=== PATIENT | female | born 1940 | race Caucasian/White ===

== ENCOUNTER 2024-05-30 11:42 | Inpatient (IN) | payer MEDICARE, OTHER, SELFPAY ==
[2024-05-30] VITALS (7 sets, daily range): BP systolic 114–149; BP diastolic 62–78; PULSE 81–92; BMI 32.7; BMI 29.2
[2024-05-30 04:14] LABS: % Basophils 0.6 % (0-2); % Eosinophils 1.7 % (0-6); % Immature Granulocytes 0.3 % (0-0.5); % Lymphocytes 16.4 % (20.5-51.1); % Monocytes 8.6 % (1.7-9.3); % Neutrophils 72.4 % (42.2-75.2); Absolute Eosinophils 0.1 10^3/uL (0-0.7); Absolute Lymphocytes 1.1 10^3/uL (1.2-3.4); Absolute Monocytes 0.6 10^3/uL (0.1-0.6); Absolute Neutrophils 4.7 10^3/uL (1.4-6.5); Hematocrit 30.2 % (37.0-47.0); Hemoglobin 10.2 g/dL (12.0-16.0); Mean Corp Hgb Conc. 33.8 g/dL (33.0-37.0); Mean Corpuscular Hgb 31.9 pg (27.0-31.0); Mean Corpuscular Volume 94.4 fL (81.0-99.0); Mean Platelet Volume 9.7 fL (7.4-10.4); Nucleated Red Blood Cells % 0 %; Platelet Count 275 10^3/uL (130-400); Red Cell Dist. Width 13.4 % (11.5-14.5); White Blood Cell Count 6.5 10^3/uL (4.8-10.8)
[2024-05-30 04:28] LABS: ALT (SGPT) 18 U/L (0-35); AST (SGOT) 22 U/L (14-36); Albumin 3.8 g/dl (3.5-5.0); Alkaline Phosphatase 92 U/L (38-126); Blood Urea Nitrogen 28 mg/dl (7-17); Calcium 8.6 mg/dl (8.4-10.2); Carbon Dioxide 24 mmol/L (22-30); Chloride 108 mmol/L (98-107); Glucose 147 mg/dl (70-99); Sodium 141 mmol/L (135-145); Total Bilirubin 0.6 mg/dl (0.2-1.3); eGFR > 60.00
--- NOTE | 2024-05-30 07:42 | ED.GENMED ---
History of Present Illness
General
Chief Complaint: Rectal Bleeding
Source: patient
Exam Limitations: none
Time Seen by Provider: 05/30/24 07:05
History of Present Illness
History of Present Illness:
84-year-old female on a baby aspirin presents with onset of copious amounts and several episodes of bright red blood per rectum about 5 to 6 hours prior to exam. She denies abdominal pain. Dorsalis denies chest pain or shortness of breath. She
does feel weak. Upon standing at home she was feeling slightly lightheaded. No urinary symptoms. No other complaints. She states she last had a colonoscopy about 2 years ago which per the patient showed no abnormalities.
Past History
Past History
ED Past Medical History: Other (Migraines)
ED Past Surgical History: Orthopedic
Social History
Tobacco: Non-smoker
Phy Exam
Physical Exam
Physical Exam:
General: Well-appearing female no acute respiratory distress
HEENT: Normocephalic atraumatic sclera anicteric
Heart: Regular rate and rhythm
Lungs: Clear no wheeze
Abdomen is soft nontender nondistended
Rectal exam with female weatherization administrator in room shows red-colored stool heme positive no hemorrhoids or fissures noted
Extremities: No cyanosis
Course
Orders/Labs/Results
Orders:
Orders
05/30/24 03:34
Type+Screen Urgent
05/30/24 04:03
CBC/With Diff [Complete Blood Count/With Diff] Urgent
Comprehensive Metabolic Panel Urgent
05/30/24 07:50
CT Angio Abd/Pelvis w/wo IV [CT Abd/pelvis Angio W/wo Iv] Urgent
Comment:
Reason For Exam: rectal bleeding
Abnormal Lab Results
05/30/24
04:03
RBC 3.20 L 10^6/uL
(4.20-5.40)
Hgb 10.2 L g/dL
(12.0-16.0)
Hct 30.2 L %
(37.0-47.0)
MCH 31.9 H pg
(27.0-31.0)
Absolute Lymphs (auto) 1.1 L 10^3/uL
(1.2-3.4)
Lymphocytes % 16.4 L %
(20.5-51.1)
Chloride 108 H mmol/L
(98-107)
BUN 28 H mg/dl
(7-17)
Glucose 147 H mg/dl
(70-99)
Total Protein 6.0 L g/dl
(6.3-8.2)
05/30/24 04:03
05/30/24 04:03
Vital Signs
Initial and Last Documented VS:
Initial Vital Signs
Temp Pulse Resp BP Pulse Ox
98 F 78 20 114/64 96
05/30/24 03:30 05/30/24 03:30 05/30/24 03:30 05/30/24 03:30 05/30/24 03:30
Last Documented Vital Signs
Temp Pulse Resp BP Pulse Ox
98 F 76 16 137/66 98
05/30/24 03:30 05/30/24 07:41 05/30/24 07:41 05/30/24 07:41 05/30/24 07:41
MDM/Problems Addressed
Differential Diagnosis Includes:
Bright red rectal bleeding. No obvious evidence of hemorrhoid or fissure. Consider diverticular bleed. Patient's vital signs are stable do not suspect brisk upper GI bleed. Hemoglobin today is 10.2. Most recent was from 2019 which showed
hemoglobin of 11. Will plan on admitting to hospital for GI bleeding. GI made aware.
*Critical Care Note
Total Time (30-74mins, 75-104mins- exclusive of procedures): Not Applicable
ED Attending Note
-
Portions of this chart may have been created with voice recognition software.� Occasional wrong word or��sound alike� substitutions may have occurred due to the inherent limitations of voice recognition software.
Discharge Plan
Departure
Patient Disposition: Admit
Date of Disposition: 05/30/24
Time of Disposition: 07:53
Presentation/result/management discussed w/ accepting MD/DO: Hospitalist
Discharge Problem:
Acute GI bleeding
Prescriptions:
No Action
vitamin B complex 1 TAB tablet
1 tab PO DAILY
inositol 500 MG tablet
1,000 mg PO DAILY
cholecalciferol (vitamin D3) [Vitamin D3] 1,000 UNIT capsule
1,000 unit PO DAILY
vitamin E (dl, acetate) 400 UNITS capsule
400 units PO DAILY
Calcium Magnesium Zinc
1 tab PO DAILY
hydrocodone-acetaminophen [[place]] 1 EACH tablet
1 ea PO Q6HPRN PRN (Reason: pain) 10 Days Qty: 30 0RF
lorazepam 0.5 MG tablet
0.5 mg PO Q8HPRN PRN (Reason: pain/spasm) Qty: 40 0RF
Referrals:
Yolanda Rocha MD [Family Provider] -
Interventions
Interventions:
*Risk Screen - Suicide Last Done: 05/30/24 03:30
*General Assessment Last Done: 05/30/24 07:42
*Neglect/Abuse Screening Last Done: 05/30/24 03:30
*ED COVID-19 Vaccine History Last Done: 05/30/24 07:42
Discharge Date and Time
Print Language: UKRAINIAN
--- NOTE | 2024-05-30 08:37 | CON.GI ---
Addendum entered and electronically signed by Jonathan Heredia DO 05/30/24 16:51:
I saw and examined the patient.
The PIPE LINE INSPECTOR's note was reviewed and I agree with the note.
Comment: Ms Buckner is a 84 y.o female with past medical history of prior obstructive CAD (s/p recent stenting 02/2024, on DAPT) and hx of melanoma who presented with rectal bleeding. Patient denies any prior hx of GI bleeding in the past. She
reports a prior colonoscopy at [facility] about 2 years ago which was reportedly normal (no report of this). Denies any prior constipation, changes in bowel habits, diarrhea or unintentional weight loss. CTA 05/30 (-) for active GI bleed, however
revealed irregular wall thickening in the proximal rectum suspicious for malignancy. Given this finding and particular need to restart DAPT given her history of prior cardiac stents, would benefit from a colonoscopy for further evaluation.
Suspicious seems still more likely for a diverticular hemorrhage given her painless hematochezia/rectal bleeding, but given CTA findings and need to restart DAPT would benefit from a sooner colonoscopy (rather than an extended washout). Endoscopic
therapy would be limited (ie cautery) and/or would be unable to remove any polyps/lesions given recent plavix (last dose 05/29). However, after prolonged discussions with patient, agreeable to diagnostic colonoscopy for further evaluation.
Recommendations:
- Okay for CLD, NPO at [place]
- Trend Hgb with serial CBC, transfuse PRN
- Give 4L Gavilyte prep today
- Plan for diagnostic colonoscopy tomorrow, 05/31/2024
- Plavix remains on hold (last dose 05/29- ), would favor restarting tomorrow after colonoscopy given need for DAPT given recent stents
- Rest of care as outlined below
GI will continue to follow.
Addendum entered and electronically signed by JEREMY Richardson 05/30/24 15:40:
05/30 CTA
1. No overt CTA evidence for active GI bleed.
2. Irregular wall thickening in the high rectum highly suspicious for neoplasm.
3. No overt CT evidence for metastatic disease in the abdomen or pelvis.
reviewed with Dr. Heredia plan for colonoscopy tomorrow to eval for rectal abnormality and bleeding source. Cont to hold Plavix.
Original Note:
Consultation
-
Date/Time Consultation Requested: 05/30/24 4680
Date/Time Consultation Performed: 05/30/24 0830
Requesting Provider: Ivan Godwin PA-C
Performing Provider: JEREMY Nova, Jnoathan Heredia DO
Reason for Consultation: GI bleed
Medical History
Chief Complaint / HPI
Chief Complaint: rectal bleeding
History of Present Illness:
Pt is an 84yo with hx CAD prior stenting on February 2024 at [facility] on Plavix and ASA, THR, HTN, migraines melanoma with sudden onset of rectal bleeding since 05/29. Pt initially passed burgundy stool then red blood. At onset stools were every
15 minutes then less frequent and less volume in ER. On admission hbg 10.2. Pt denies prior hx bleeding. She had routine colonoscopy at [facility] about 2 years ago recalls as normal with no need for follow up. She had minimal nausea in ambulance
to hospital and some ongoing issues with shortness of breath. She otherwise denies hx dysphagia, GERD, abdominal pain, diarrhea, constiaption, or black stools.
Past Medical History
Past Medical History: CAD, Cancer (melanoma), HTN and Other (migraines )
Past Surgical History: Cardiac (cardiac stent February 2024 at [facility]) and Orthopedic (THR, spine surgery)
Social History
Tobacco: Non-Smoker
Alcohol: Occasional (minimal )
Drug: None
Living: Alone
Employment: Retired
Family History
Family History: Other (grandson with Crohns disease )
Allergies / Home Medications
Allergy/AdvReac Type Severity Reaction Status Date / Time
No Known Allergies Allergy Verified 05/30/24 03:34
�Medication �Instructions �Recorded
Calcium Magnesium Zinc 1 tab PO DAILY 02/02/19
cholecalciferol (vitamin D3) 25 1,000 unit PO DAILY 02/02/19
mcg (1,000 unit) capsule (Vitamin
D3)
inositol 500 mg tablet 1,000 mg PO DAILY 02/02/19
vitamin B complex 1 tab PO DAILY 02/02/19
vitamin E (dl, acetate) 180 mg 400 units PO DAILY 02/02/19
(400 unit) capsule
hydrocodone 10 mg-acetaminophen 1 ea PO Q6HPRN PRN pain 10 days 02/07/19
325 mg tablet ([place]) #30 tabs
lorazepam 0.5 mg tablet 0.5 mg PO Q8HPRN PRN pain/spasm 02/07/19
#40 tabs
Review of Systems
-
History Source: Patient
Constitutional: Reports No Symptoms
EENT: Reports No Symptoms
Respiratory: Reports Trouble Breathing (ongoing issue slight improved since stents )
Cardiac: Reports No Symptoms
Abdomen/GI: Reports Bloody Stools
: Reports No Symptoms
Musculoskeletal: Reports No Symptoms
Skin: Reports No Symptoms
Neurological: Reports No Symptoms
Endocrine: Reports No Symptoms
Hematologic/Lymphatic: Reports Bleeding
Vital Signs
Temp Pulse Resp BP Pulse Ox
98 F 76 16 137/66 96
05/30/24 03:30 05/30/24 07:41 05/30/24 07:41 05/30/24 07:41 05/30/24 08:08
Physical Exam
Exam
General: Well Developed, Well Nourished and No Apparent Distress
HEENT: Normocephalic and Anicteric
Respiratory: Clear
Cardiac: Regular Rhythm
GI: Soft, Non Tender and Non Distended
Rectal: Other (ER red heme +)
Musculoskeletal: No Clubbing and No Cyanosis
Skin: Warm and Dry
Neuro: Awake, Alert and AO x 3
Psych: Calm
Results
WBC 6.5 10^3/uL (4.8-10.8) 05/30/24 04:03
Hgb 10.2 g/dL (12.0-16.0) L 05/30/24 04:03
Hct 30.2 % (37.0-47.0) L 05/30/24 04:03
MCV 94.4 fL (81.0-99.0) 05/30/24 04:03
Plt Count 275 10^3/uL (130-400) 05/30/24 04:03
Absolute Neuts (auto) 4.7 10^3/uL (1.4-6.5) 05/30/24 04:03
Sodium 141 mmol/L (135-145) 05/30/24 04:03
Potassium 4.0 mmol/L (3.5-5.1) 05/30/24 04:03
Chloride 108 mmol/L (98-107) H 05/30/24 04:03
Carbon Dioxide 24 mmol/L (22-30) 05/30/24 04:03
BUN 28 mg/dl (7-17) H 05/30/24 04:03
Creatinine 0.6 mg/dL (0.6-1.0) 05/30/24 04:03
Calcium 8.6 mg/dl (8.4-10.2) 05/30/24 04:03
Total Bilirubin 0.6 mg/dl (0.2-1.3) 05/30/24 04:03
AST 22 U/L (14-36) 05/30/24 04:03
ALT 18 U/L (0-35) 05/30/24 04:03
Alkaline Phosphatase 92 U/L (38-126) 05/30/24 04:03
Diagnostic Image Results:
05/30 CTA pending
Prior GI Procedures:
Colonoscopy: 2 years ago at [facility] recall as noraml
Assessment / Plan
-
Pt is an 84yo with hx CAD prior stenting on February 2024 at [facility] on Plavix and ASA, THR, HTN, migraines melanoma with sudden onset of rectal bleeding since 05/29. Pt initially passed burgundy stool then red blood. At onset stools were every
15 minutes then less frequent and less volume in ER. On admission hbg 10.2. Pt denies prior hx bleeding. She had routine colonoscopy at [facility] about 2 years ago recalls as normal with no need for follow up.
-rectal bleeding
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 Davila at [facility]
-chronic shortness of breath
other med problems:
-THR and spine surgery
-migraines
-melanoma
PLAN:
etiology of rectal bleeding related to diverticular bleed vs other
await CTA if + and continued bleeding consider angio
if neg and bleeding persists consider colonoscopy
trend hbg transfuse less than 7 and stool record
Plavix hold (last dose 05/29) ok for ASA if needed with hx recent stents
NPO
will follow
-
-
Thank you for consultation and allowing me to participate in the patient's care. Please call the personal computer network analyst GI physician during the after hours with any questions or concerns.
--- NOTE | 2024-05-30 09:20 | ED.GENMED ---
History of Present Illness
General
Chief Complaint: Rectal Bleeding
Time Seen by Provider: 05/30/24 07:05
Past History
Past History
ED Past Medical History: Other (Migraines)
ED Past Surgical History: Orthopedic
Social History
Tobacco: Non-smoker
Course
Orders/Labs/Results
Orders:
Orders
05/30/24 03:34
Type+Screen Urgent
05/30/24 04:03
CBC/With Diff [Complete Blood Count/With Diff] Urgent
Comprehensive Metabolic Panel Urgent
05/30/24 07:50
CT Angio Abd/Pelvis w/wo IV [CT Abd/pelvis Angio W/wo Iv] Urgent
Comment:
Reason For Exam: rectal bleeding
05/30/24 08:25
Electrocardiogram (*1) Urgent
Reason for Study: Vertigo / Dizzy
EKG- Treatment ONCE
Abnormal Lab Results
05/30/24
04:03
RBC 3.20 L 10^6/uL
(4.20-5.40)
Hgb 10.2 L g/dL
(12.0-16.0)
Hct 30.2 L %
(37.0-47.0)
MCH 31.9 H pg
(27.0-31.0)
Absolute Lymphs (auto) 1.1 L 10^3/uL
(1.2-3.4)
Lymphocytes % 16.4 L %
(20.5-51.1)
Chloride 108 H mmol/L
(98-107)
BUN 28 H mg/dl
(7-17)
Glucose 147 H mg/dl
(70-99)
Total Protein 6.0 L g/dl
(6.3-8.2)
05/30/24 04:03
05/30/24 04:03
Vital Signs
Initial and Last Documented VS:
Initial Vital Signs
Temp Pulse Resp BP Pulse Ox
98 F 78 20 114/64 96
05/30/24 03:30 05/30/24 03:30 05/30/24 03:30 05/30/24 03:30 05/30/24 03:30
Last Documented Vital Signs
Temp Pulse Resp BP Pulse Ox
98 F 76 16 137/66 96
05/30/24 03:30 05/30/24 07:41 05/30/24 07:41 05/30/24 07:41 05/30/24 08:08
Update Note
Update Note:
EKG shows sinus rhythm with rate of 68 there is nonspecific T wave flattening in the lateral leads.
ED Attending Note
-
Portions of this chart may have been created with voice recognition software.� Occasional wrong word or��sound alike� substitutions may have occurred due to the inherent limitations of voice recognition software.
Discharge Plan
Departure
Patient Disposition: Admit
Date of Disposition: 05/30/24
Time of Disposition: 07:53
Presentation/result/management discussed w/ accepting MD/DO: Hospitalist
Discharge Problem:
Acute GI bleeding
Prescriptions:
No Action
vitamin B complex 1 TAB tablet
1 tab PO DAILY
inositol 500 MG tablet
1,000 mg PO DAILY
cholecalciferol (vitamin D3) [Vitamin D3] 1,000 UNIT capsule
1,000 unit PO DAILY
vitamin E (dl, acetate) 400 UNITS capsule
400 units PO DAILY
Calcium Magnesium Zinc
1 tab PO DAILY
hydrocodone-acetaminophen [[place]] 1 EACH tablet
1 ea PO Q6HPRN PRN (Reason: pain) 10 Days Qty: 30 0RF
lorazepam 0.5 MG tablet
0.5 mg PO Q8HPRN PRN (Reason: pain/spasm) Qty: 40 0RF
Referrals:
Yolanda Rocha MD [Family Provider] -
Interventions
Interventions:
*Risk Screen - Suicide Last Done: 05/30/24 03:30
*General Assessment Last Done: 05/30/24 07:42
*Neglect/Abuse Screening Last Done: 05/30/24 03:30
ED- Fall Risk Assessment Last Done: 05/30/24 08:08
*ED COVID-19 Vaccine History Last Done: 05/30/24 07:42
HP-Lzewgn-Ixgxiaiwtz Assessment Last Done: 05/30/24 08:09
ED- Cardiac Assessment Last Done: 05/30/24 08:09
ED- Pulmonary Assessment Last Done: 05/30/24 08:08
Discharge Date and Time
Print Language: GUINEAN
--- NOTE | 2024-05-30 11:12 | HPS.HSE ---
Family Physician
-
Family Physician: Yolanda Rocha
Chief Complaint
-
blood in stool
History of Present Illness
84-year-old female who is presenting from home with bright red blood per the rectum. Patient states symptoms started yesterday around 2 PM. States since then she is being multiple episode of bright red blood per rectum. Denies abdominal pain or
cramps on aspirin and Plavix due to coronary artery disease status post 2 stents last year. Denies any chest pain. Denies any lightheaded and dizziness. States of feeling tired. He denies any prior history of GI bleeding. Denies taking
increasing amount of NSAIDs. Denies any pain during bowel movements. Denies any nausea or vomiting. Stated a colonoscopy few years ago and was found to be negative. Denies any chest pain or shortness of breath or nausea or vomiting or headache.
Denies any dysuria or hematuria.
Medical History
Past Medical History
Past Medical History: Reports Other
Additional Past Medical History:
Coronary artery disease status post stents
Primary hypertension
Skin cancer
Back pain
Sciatica
Spinal stenosis
Arthritis
Past Surgical History: Reports Other
Additional Past Surgical History:
Coronary artery disease status post stents x 2-02/23 at [facility]
L4-L5 laminectomy, spinal fusion
Social History
Tobacco: Non-smoker
Alcohol: None
Family History
Family History: Not pertinent
Allergies / Home Medications
Allergies reflects when Allergies were last updated in [facility].
Home Medications with original date entered in [facility]
Allergy/Medication List:
Allergies
Allergy/AdvReac Type Severity Reaction Status Date / Time
No Known Allergies Allergy Verified 05/30/24 03:34
Home Medications
Calcium Magnesium Zinc 1 tab PO DAILY 02/02/19
cholecalciferol (vitamin D3) 25 mcg (1,000 unit) capsule (Vitamin D3) 1,000 unit PO DAILY 02/02/19
vitamin B complex 1 tab PO DAILY 02/02/19
vitamin E (dl, acetate) 180 mg (400 unit) capsule 400 units PO DAILY 02/02/19
aspirin 81 mg chewable tablet 81 mg PO DAILY 05/30/24
clopidogrel 75 mg tablet 75 mg PO DAILY 05/30/24
losartan 100 mg tablet 100 mg PO DAILY 05/30/24
meloxicam 15 mg tablet 15 mg PO DAILYPRN PRN hip pain 05/30/24
Review of Systems
-
History Source: Patient
A 12 point ROS was completed and negative except as noted: Yes
Physical Exam
Vital Signs
Vital Signs
Temp Pulse Resp BP Pulse Ox
98 F 73 14 137/66 95
05/30/24 03:30 05/30/24 10:00 05/30/24 09:21 05/30/24 07:41 05/30/24 09:21
Physical Exam
General: Well Developed, Well Nourished and No Apparent Distress
HEENT: NormoCephalic, Moist mucous membranes and Atraumatic
Respiratory: Clear
Cardiac: S1/S2 and Regular Rhythm; No Murmur or Rub
GI: Soft, Non Tender, Non Distended and Normal Bowel Sounds; No Organomegaly
Rectal: Hem Positive (By ER)
Genito-urinary: Deferred by me
Musculoskeletal: No Clubbing, No Cyanosis and No Edema
Skin: No Rash
Neuro: Awake, Alert, Oriented, AO x 3, No Motor Deficits and Nonfocal/grossly intact
Psych: Calm
Laboratory Results
-
05/30/24 04:03
05/30/24 04:03
Laboratory Results
Total Bilirubin 0.6 mg/dl (0.2-1.3) 05/30/24 04:03
AST 22 U/L (14-36) 05/30/24 04:03
ALT 18 U/L (0-35) 05/30/24 04:03
Alkaline Phosphatase 92 U/L (38-126) 05/30/24 04:03
Impression/Plan
-
#Bright red blood per rectum likely secondary to lower GI bleed likely secondary to diverticular versus AVM unclear if exacerbated by aspirin or Plavix
CT angiogram with no active bleeding. Rectal thickening noted
Continue aspirin. Holding Plavix for possible procedure requirement.
Trend hemoglobin
Start patient on IV fluid
PPI twice daily for now
GI following
#CAD status post stents 02/23
Continue with aspirin
Holding Plavix and need to be restarted PRADEEP
Monitor on telemetry
#Primary hypertension
Hold blood pressure meds for now
#Arthritis
Pain control with Tylenol
Vitamin D deficiency
Continue with p.o. supplementation
DVT prophylaxis SCDs in the setting of GI bleeding
Full code
I spent a total of 80 minutes with the patient or on the floor. More than 50% of this time involved counseling and coordination of care.
[2024-05-30] MEDS: NULYTELY SOLUTION 4 LITERS PO (17:54)
[2024-05-30] MEDS: NSS 1000 IV (17:55)
[2024-05-30] MEDS: PROTONIX IV 40 MG IV (17:57)
[2024-05-30] MEDS: NSS (PRESERVATIVE FREE) 10 ML IV (17:57)
--- NOTE | 2024-05-30 18:24 | PTCARENOTE ---
admitted from ED for lower GI bleed. admission completed. AAOx3, VSS. clear liquid diet orders. on IVF with NSS @100 ml/hr. NPO after midnight for colonoscopy in AM. bowel prep in progress. educated on fall risk and using call [facility] for assistance
[2024-05-30 21:15] LABS: Hematocrit 27.1 % (37.0-47.0); Hemoglobin 9.2 g/dL (12.0-16.0)
[2024-05-31] VITALS (9 sets, daily range): BP systolic 17–164; BP diastolic 69–83
[2024-05-31] MEDS: NSS 1000 IV (03:42)
[2024-05-31 05:13] LABS: Hematocrit 24.6 % (37.0-47.0); Hemoglobin 8.4 g/dL (12.0-16.0)
[2024-05-31 05:18] LABS: INR 1.05; PT 14.1 Sec (11.4-14.6)
[2024-05-31 05:28] LABS: Blood Urea Nitrogen 19 mg/dl (7-17); Calcium 7.9 mg/dl (8.4-10.2); Carbon Dioxide 22 mmol/L (22-30); Chloride 109 mmol/L (98-107); Estimated Creatinine Clearance 67 ml/min; Glucose 109 mg/dl (70-99); Sodium 141 mmol/L (135-145); eGFR > 60.00
[2024-05-31 05:32] LABS: Potassium 3.8 mmol/L (3.5-5.1)
--- NOTE | 2024-05-31 05:38 | PTCARENOTE ---
pt had a loose bm over night x2. pt was only able to finish 2liters of the colonoscopy prep. Pt has had several BRBPR large amounts throughout the night.
[2024-05-31] MEDS: PROTONIX IV 40 MG IV ×2 (07:35→20:18)
[2024-05-31] MEDS: LOW STRENGTH ASPIRIN 81 MG PO (07:35)
[2024-05-31] MEDS: VITAMIN D3 (cholecalciferol) 25 MCG PO (07:35)
[2024-05-31] MEDS: NSS (PRESERVATIVE FREE) 10 ML IV ×2 (07:36→20:18)
--- NOTE | 2024-05-31 11:04 | W.PN.HOSP.TC ---
Today's Communication/Plan
-
Colonoscopy today
trend h/h
restart plavix soon
cont asa
Assessment / Plan
Assessment / Plan
General: Well Developed, Well Nourished and No Apparent Distress
HEENT: NormoCephalic, Moist mucous membranes and Atraumatic
Respiratory: Clear
Cardiac: S1/S2 and Regular Rhythm; No Murmur or Rub
GI: Soft, Non Tender, Non Distended and Normal Bowel Sounds; No Organomegaly
Rectal: Hem Positive (By ER)
Genito-urinary: Deferred by me
Musculoskeletal: No Clubbing, No Cyanosis and No Edema
Skin: No Rash
Neuro: Awake, Alert, Oriented, AO x 3, No Motor Deficits and Nonfocal/grossly intact
Psych: Calm
#Bright red blood per rectum likely secondary to lower GI bleed likely secondary to diverticular versus AVM unclear if exacerbated by aspirin or Plavix
CT angiogram with no active bleeding. Rectal thickening noted
Continue aspirin. Holding Plavix for C-SCOPE
Trend hemoglobin
PPI twice daily for now
Plan for C-scope later today
GI following
#CAD status post stents 02/23
Continue with aspirin
Holding Plavix and need to be restarted PRADEEP
Monitor on telemetry
#Primary hypertension
holding losartan for now
#Arthritis
Pain control with Tylenol
Vitamin D deficiency
Continue with p.o. supplementation
DVT prophylaxis SCDs in the setting of GI bleeding
Full code
Anticipated Discharge: > 48 hours
Subjective/Interval History
-
Date of Service: May 31, 2024
Having multiple episode of BRBPR
no abd pain
still yet to finish prep
Objective Data
-
Labs:
Laboratory Results
05/31/24 05/31/24 05/31/24
01:34 04:39 09:34
Hgb Cancelled 8.4 L Cancelled
Hct Cancelled 24.6 L Cancelled
PT 14.1
INR 1.05
Sodium 141
Potassium 3.8
Chloride 109 H
Carbon Dioxide 22
BUN 19 H
Creatinine 0.5 L
Glucose 109 H
Calcium 7.9 L
05/31/24
13:00
Hgb Pending
Hct Pending
PT
INR
Sodium
Potassium
Chloride
Carbon Dioxide
BUN
Creatinine
Glucose
Calcium
Vital Signs:
Vital Signs
Temp Pulse Resp BP Pulse Ox
98.5 F 78 16 151/73 97
05/31/24 08:14 05/31/24 08:14 05/31/24 08:14 05/31/24 08:14 05/31/24 08:14
I&O
05/30/24 05/31/24 06/01/24
06:59 06:59 06:59
Intake Total 3200 / 3200
Balance 3200 / 3200
[2024-05-31 13:04] LABS: Hematocrit 23.9 % (37.0-47.0); Hemoglobin 8.1 g/dL (12.0-16.0)
--- NOTE | 2024-05-31 15:17 | PN.CDI ---
CDI
- -
CDI:
Physician Documentation Request
Admit Date: 05/30/24 11:42
Dear Doctor Erasto,
Clinical Indicators:
Patient admitted with rectal bleeding.
05/30 ED report,' She does feel weak. Upon standing at home she was feeling slightly lightheaded'
05/31 (05:38) RN note,' Pt has had several BRBPR large amounts throughout the night.'
Hgb/Hct Trend:
05/30/24 05/30/24 05/31/24
04:03 21:02 04:39
Hgb 10.2 L 9.2 L 8.4 L
Hct 30.2 L 27.1 L 24.6 L
Based on the above, could you clarify in the progress notes, the appropriate diagnosis, if significant, that supports the above abnormalities and additional evaluation, monitoring and/or treatment rendered:
Acute blood loss anemia
Anemia, other (please specify)
Abnormal lab values, clinically insignificant
Other
Use of terms such as suspected, likely, concern for, or probable (associated with a specific diagnosis that is being evaluated, monitored, or treated as if it exists) are acceptable and can be coded in the inpatient setting, when documented at the
time of discharge.
Thank you,
Delores Dc RN BSN
CDI Specialist
available via tiger text
Please use your independent medical judgment in providing your response.
[2024-05-31 17:52] LABS: Hematocrit 21.7 % (37.0-47.0); Hemoglobin 7.4 g/dL (12.0-16.0)
[2024-05-31] MEDS: LR 1000 IV (17:57)
--- NOTE | 2024-05-31 18:13 | W.PN.UPDATE ---
Update Note
Progress Note Update
Patient is s/p colonoscopy. Patient was found to have significant amount of blood which was noted during colonoscopy. Discussed with gastroenterology likely diverticular bleeding. Recommending stat CT angiogram to try to localize source of
bleeding. Patient was started on IV fluids. Patient tolerated some clear liquid diet. Patient repeat hemoglobin 7.4. Will repeat H&H later today. Blood consent that has been scanned into the system. Also discussed this with patient and patient
family member at bedside in detail. Both understand the risk of restarting Plavix as patient with active bleeding and they understand the necessity to hold Plavix even with recent stent as bleeding likely exacerbated by dual antiplatelet agents.
Plan
If CT angio positive for active bleeding please consult [facility] for embolization
Repeat H&H and if downtrend noted transfuse 1 unit of PRBC
Also discussed with patient RN to pass along to next shift.
[2024-05-31 21:02] LABS: Hematocrit 20.3 % (37.0-47.0); Hemoglobin 6.8 g/dL (12.0-16.0)
--- NOTE | 2024-05-31 22:32 | PTCARENOTE ---
pt went to ct angio after midline insertion- hgb dropped to 6.8- spinner iron ordered 1 unit prbcs's currently infusing no s/s of reaction. spinner iron in to evaluate- transferring pt to imu
--- NOTE | 2024-05-31 23:09 | PTCARENOTE ---
pt to go to IR renea- Daughter notified by [facility] CRUSHER- IR requested nunez to be placed. nunez placed. awaiting transfer to IR prbc's infusing
--- NOTE | 2024-05-31 23:29 | PTCARENOTE ---
Addendum entered by Zacarias Fermin RN 06/01/24 00:20:
pink blood slip given to IR RN at time of transfer
Original Note:
pt taken to IR . pt for imu after IR- blood infusing- report of blood timing and general report given to IR nurse and IMU RN
[2024-06-01] VITALS (29 sets, daily range): BP systolic 111–180; BP diastolic 56–117
--- NOTE | 2024-06-01 00:16 | W.PN.UPDATE ---
Update Note
Progress Note Update
Patient taken for CT Abd/pelvis Angio W/wo Iv: Examination is positive for active GI bleeding involving the sigmoid colon in the left pelvis. Contacted Attending, GI, IR, nursing bonding supervisor. IR to come in for embolization. Hgb 6.8, ordered 1 unit
PRBC's to transfuse. Serial H&H's ordered. Rubi placed. Reviewed CT scan results with patient and discussed plan of care. Patient verbalized understanding and is in agreement with proceeding with embolization in IR. Patient's daughter, Andrew called
and updated. Patient upgraded to IMU for closer monitoring.
--- NOTE | 2024-06-01 00:50 | W.PN.IRAD.PR ---
Procedure Note
-
Post inferior mesenteric angiography. Good visualization of vessels throughout STACIE distribution, no active contrast extravasation was identified. 5 Fr Mynx closure device deployed R CF arteriotomy site. No immediate complications, VSS throughout,
slightly hypertensive.
[2024-06-01] MEDS: LR 1000 IV ×3 (01:23→20:29)
[2024-06-01 06:39] LABS: Blood Urea Nitrogen 5 mg/dl (7-17); Calcium 7.6 mg/dl (8.4-10.2); Carbon Dioxide 25 mmol/L (22-30); Chloride 107 mmol/L (98-107); Estimated Creatinine Clearance 67 ml/min; Glucose 91 mg/dl (70-99); Potassium 3.5 mmol/L (3.5-5.1); Sodium 138 mmol/L (135-145); eGFR > 60.00
[2024-06-01 06:58] LABS: % Basophils 0.5 % (0-2); % Eosinophils 1.4 % (0-6); % Immature Granulocytes 0.5 % (0-0.5); % Lymphocytes 19.5 % (20.5-51.1); % Monocytes 11.7 % (1.7-9.3); % Neutrophils 66.4 % (42.2-75.2); Absolute Eosinophils 0.1 10^3/uL (0-0.7); Absolute Lymphocytes 1.3 10^3/uL (1.2-3.4); Absolute Monocytes 0.8 10^3/uL (0.1-0.6); Absolute Neutrophils 4.4 10^3/uL (1.4-6.5); Hematocrit 22.6 % (37.0-47.0); Hemoglobin 7.8 g/dL (12.0-16.0); Mean Corp Hgb Conc. 34.5 g/dL (33.0-37.0); Mean Corpuscular Hgb 31.8 pg (27.0-31.0); Mean Corpuscular Volume 92.2 fL (81.0-99.0); Mean Platelet Volume 9.7 fL (7.4-10.4); Nucleated Red Blood Cells % 0 %; Platelet Count 199 10^3/uL (130-400); Red Blood Cell Count 2.45 10^6/uL (4.20-5.40); Red Cell Dist. Width 13.8 % (11.5-14.5); White Blood Cell Count 6.6 10^3/uL (4.8-10.8)
[2024-06-01] MEDS: VITAMIN D3 (cholecalciferol) PO (08:23)
[2024-06-01] MEDS: LOW STRENGTH ASPIRIN PO (08:23)
[2024-06-01] MEDS: NSS (PRESERVATIVE FREE) 10 ML IV ×2 (08:44→20:29)
[2024-06-01] MEDS: PROTONIX IV 40 MG IV ×2 (08:44→20:29)
--- NOTE | 2024-06-01 10:09 | W.PN.GI.CBS2 ---
Today's Communication / Plan
-
Trend Hgb with serial CBC. If recurrent lower GI bleeding, consult IR to discuss repeat CTA versus repeat IR Angiogram (STACIE). No plans for either flex-sig or colonoscopy. Favor continuing ASA, plavix remains on hold given her significant lower GI
hemorrhage. Favor restarting sooner than later (potentially this evening) if no further bleeding. Ultimately, defer to primary team. GI will sign-off, please re-contact if any questions or concerns.
Assessment / Plan
-
Ms Buckner is a 84 y.o female with past medical history of prior obstructive CAD (s/p recent stenting 02/2024, on DAPT) and hx of melanoma who presented with rectal bleeding. Patient denies any prior hx of GI bleeding in the past. She reports a
prior colonoscopy at [facility] about 2 years ago which was reportedly normal (no report of this). Denies any prior constipation, changes in bowel habits, diarrhea or unintentional weight loss. CTA 05/30 (-) for active GI bleed, however revealed
irregular wall thickening in the proximal rectum suspicious for malignancy. Given this finding and particular need to restart DAPT given her history of prior cardiac stents, would benefit from a colonoscopy for further evaluation. Suspicious seems
still more likely for a diverticular hemorrhage given her painless hematochezia/rectal bleeding, but given CTA findings and need to restart DAPT would benefit from a sooner colonoscopy (rather than an extended washout). Endoscopic therapy would be
limited (ie cautery) and/or would be unable to remove any polyps/lesions given recent plavix (last dose 05/29).
#LGIB 2/2
#Sigmoid Diverticular Hemorrhage
#Acute Blood Loss Anemia
#Hx of Obstructive CAD (s/p DAPT on 02/2024- at [facility])
-S/p colonoscopy 05/31/24 with significant fresh blood/clots throughout the left colon and transverse colon, most prominent within the sigmoid colon suggestive of ongoing diverticular hemorrhage; a small amount of liquid stool was found in the
proximal transverse colon, at the hepatic flexure, in the ascending colon and in the cecum; further suggestive of a left-sided diverticular bleed; the exam was otherwise without abnormality on direct and retroflexion views without any visible rectal
mass or large rectal lesion during a careful examination.
- Repeat CTA obtained on 05/31: examination is positive for active GI bleeding involving the sigmoid colon in the left pelvis; Hgb 8 -> 6.8 s/p 1 uPRBC on 05/31
- Taken for IR Angio for potential embolization on 06/01. Ultimately, STACIE Angiogram (-) for extravasation, no embolization performed
Recommendations:
- Ensure two large bore IVs at all times
- Okay for CLD today, then may ADAT
- Trend Hgb with serial CBC, transfuse for goal Hgb > 8.0 given cardiac hx
- No plans for a repeat colonoscopy at this time given her diverticular hemorrhage and without any other intervenable lesions (ie AVMs, ulcerations, etc). Furthermore, no rectal lesions or obvious masses (given previous concern mentioned on prior
CTA)
- If recurrent hematochezia, significant drop in Hgb (> 1-2 gm), or HD-instability would consult IR to discuss either repeating a stat CTA versus directly proceeding with a repeat IR STACIE Angiogram (favor this) given active bleeding in sigmoid colon
(during time of colonoscopy) and (+) CTA in [place]
- Okay to continue ASA from GI standpoint
- Plavix remains on hold given her significant blood loss anemia requiring transfusions and diverticular hemorrhage. High risk given her recent stents, however given her significant LGIB discussed risks and benefits with both patient and primary team
- Favor restarting later this evening if no further rebleeding and if Hgb remains stable given her recent cardiac stents (02/2024). Ultimately defer to primary team but would continue her ASA
- Avoidance of all NSAIDs
- Rest of care per primary team
Discussed with internal medicine team this AM. GI team will sign-off, please recontact with any questions or concerns.
Subjective
Subjective
Date of Service: June 01, 2024
- S/p colonoscopy 05/31/24 with significant fresh blood/clots throughout the left colon and transverse colon, most prominent within the sigmoid colon suggestive of ongoing diverticular hemorrhage
- Repeat CTA obtained on 05/31: examination is positive for active GI bleeding involving the sigmoid colon in the left pelvis
- Hgb 8 -> 6.8 s/p 1 uPRBC on 05/31
- Taken for IR Angio for potential embolization on 06/01- STACIE Angiogram (-) for extravasation, no embolization performed
No further recent bloody stools since last evening. No other abdominal pain or discomfort. Plavix continues to remain on hold.
Objective
Data Reviewed
Laboratory Data:
Laboratory Results
06/01/24 06:10
Laboratory Results
PT 14.1 Sec (11.4-14.6) 05/31/24 04:39
INR 1.05 05/31/24 04:39
Total Bilirubin 0.6 mg/dl (0.2-1.3) 05/30/24 04:03
AST 22 U/L (14-36) 05/30/24 04:03
ALT 18 U/L (0-35) 05/30/24 04:03
Alkaline Phosphatase 92 U/L (38-126) 05/30/24 04:03
Vital Signs and I&O:
Vital Signs
Temp Pulse Resp BP Pulse Ox
98.1 F 77 14 136/71 95
06/01/24 07:05 06/01/24 07:00 06/01/24 07:00 06/01/24 07:00 06/01/24 08:10
I&O
05/31/24 06/01/24 06/02/24
06:59 06:59 06:59
Intake Total 3200 / 3200 0 / 0
Output Total 1800 / 1800
Balance 3200 / 3200 -1800 / -1800
Physical Exam
Physical Exam
HEENT: Anicteric and Moist mucous membranes
Cardiology: Normal Sinus Rhythm
Pulmonary: Other (Normal WOB on room air)
GI: Soft, Non Distended and Non Tender
Extremities: No Edema
Neuro: Non Focal
--- NOTE | 2024-06-01 12:08 | W.PN.HOSP.TC ---
Addendum entered and electronically signed by Alexi Barrow MD 06/01/24 17:01:
Hgb improved to 8. No further bleeding since last night. Will restart plavix and monitor closely.
Original Note:
Today's Communication/Plan
-
repeat H/H
Restart plavix if no further bleeding
monitor closelye
IVF
clears and ADAT
Assessment / Plan
Assessment / Plan
General: Well Developed, Well Nourished and No Apparent Distress
HEENT: NormoCephalic, Moist mucous membranes and Atraumatic
Respiratory: Clear
Cardiac: S1/S2 and Regular Rhythm; No Murmur or Rub
GI: Soft, Non Tender, Non Distended and Normal Bowel Sounds; No Organomegaly
Rectal: Hem Positive (By ER)
Genito-urinary: Deferred by me
Musculoskeletal: No Clubbing, No Cyanosis and No Edema
Skin: No Rash
Neuro: Awake, Alert, Oriented, AO x 3, No Motor Deficits and Nonfocal/grossly intact
Psych: Calm
#Bright red blood per rectum likely secondary to lower GI bleed likely secondary to diverticular unclear if exacerbated by aspirin and or Plavix
# Acute blood loss anemia
CT angiogram with no active bleeding on admisison . Rectal thickening noted
Continue aspirin.
Trend hemoglobin
PPI twice daily for now
Status post colonoscopy 05/31/2024 with copious amount of fresh red blood and blood clots found in the rectum, in the rectosigmoid colon in the sigmoid colon, and descending colon and splenic flexure and in the mid transverse colon. This was most
pronounced in the sigmoid colon with large fresh red blood clot suggestive of recent bleeding. Moderate diverticulosis. There was evidence of recent bleeding from diverticular opening within the left colon. Liquid yellowish stool/luid in the
proximal transverse colon, at the hepatic flexure, in the ascending colon and in the cecum. Further suggestive of a left-sided diverticular hemorrhage.
Status post colonoscopy patient underwent repeat CT angiogram on 05/31/24. CAT scan was positive for active bleeding noted in the sigmoid colon in the left pelvis
iRad was consulted overnight and patient underwent arteriogram however no active extravasation was noted. No embolization was performed.
Discussed with gastroenterology recommended okay for clears for today. Regular diet tomorrow if no active episode of bleeding.
GI recommending repeat CT angiogram or iRad consultation if with any repeat episode of bleeding as patient may require embolization.
Repeat H&H and transfuse as needed aggressively.
If no episodes of bleeding can restart Plavix later tonight
GI following
#CAD status post stents 02/23
Continue with aspirin
Holding Plavix and need to be restarted PRADEEP
Plavix remains on hold as with significant amount of active sigmoid colonic bleeding with drop in hemoglobin and requiring blood transfusion. High risk remains with a recent stent however due to significant gastrointestinal lower bleed risk or kind
of great benefit. If if no repeat episode of hematochezia then restart Plavix and monitor
Monitor on telemetry
#Primary hypertension
holding losartan for now
#Arthritis
Pain control with Tylenol
Vitamin D deficiency
Continue with p.o. supplementation
DVT prophylaxis SCDs in the setting of GI bleeding
Full code
Discussed with gastroenterology
Anticipated Discharge: > 48 hours
Subjective/Interval History
-
Date of Service: June 01, 2024
No further episode of bleeding since last night
Denies abdominal pain nausea vomiting
Objective Data
-
Labs:
Laboratory Results
06/01/24 06/01/24 06/01/24
02:38 06:10 14:00
WBC 6.6
Hgb 8.0 L 7.8 L Pending
Hct 23.0 L 22.6 L Pending
Plt Count 199 D
Sodium 138
Potassium 3.5
Chloride 107
Carbon Dioxide 25
BUN 5 L
Creatinine 0.5 L
Glucose 91
Calcium 7.6 L
06/01/24
20:00
WBC
Hgb Pending
Hct Pending
Plt Count
Sodium
Potassium
Chloride
Carbon Dioxide
BUN
Creatinine
Glucose
Calcium
Vital Signs:
Vital Signs
Temp Pulse Resp BP Pulse Ox
98.1 F 77 14 136/71 95
06/01/24 07:05 06/01/24 07:00 06/01/24 07:00 06/01/24 07:00 06/01/24 08:10
I&O
05/31/24 06/01/24 06/02/24
06:59 06:59 06:59
Intake Total 3200 / 3200 0 / 0
Output Total 1800 / 1800
Balance 3200 / 3200 -1800 / -1800
Data Reviewed
-
Total Time Spent with Patient (in minutes): 65
[2024-06-01 16:08] LABS: Hematocrit 22.8 % (37.0-47.0)
--- NOTE | 2024-06-01 17:24 | CM ---
Patient with Dx BRBPR likely lower GIB. Room air. Clear liquids. Receiving IVF via midline, IV Protonix.
Met with patient who resides alone in a one story house with 2 OLIMPIA.
The patient was independent in ADLs and ambulation.
She states she is currently participating in cardiac rehab.
The patient has no DME, prior VN or SNF.
PCP - Yolanda Rocha
Pharmacy - [facility]
No CM d/c needs identified.
Plan home.
[2024-06-01] MEDS: PLAVIX 75 MG PO (17:55)
--- NOTE | 2024-06-01 20:01 | PTCARENOTE ---
day shift note. see nursing worklist. pt has had no rectal bleeding today. tolerating clear liquids. nunez removed and voiding without difficulty in bedside commode. repeat hemoglobin drawn this aftermoon was 8.0. plavix resumed per order. umable to
obtain blood draw from midline. pt c/o slight nausea prior to dinner but felt relief after having some tea and broth.
[2024-06-01 22:27] LABS: Hematocrit 20.9 % (37.0-47.0); Hemoglobin 7.3 g/dL (12.0-16.0)
--- NOTE | 2024-06-01 23:05 | PTCARENOTE ---
Caring for patient overnight. aaox3, pleasant. denies pain. NO bloody stools. Rechecked hgb tonight, dropped to 7.3, [employer] CON[employer]CTION WORKER updated. Will redraw in morning. IVF running. NSR, on RA. Neurovascular checks WNL. Will continue to monitor.
[2024-06-02] VITALS (24 sets, daily range): BP systolic 118–163; BP diastolic 54–102
[2024-06-02 05:05] LABS: % Basophils 0.4 % (0-2); % Eosinophils 1.9 % (0-6); % Immature Granulocytes 0.4 % (0-0.5); % Lymphocytes 18.5 % (20.5-51.1); % Monocytes 13.7 % (1.7-9.3); % Neutrophils 65.1 % (42.2-75.2); Absolute Eosinophils 0.1 10^3/uL (0-0.7); Absolute Lymphocytes 1.3 10^3/uL (1.2-3.4); Absolute Monocytes 0.9 10^3/uL (0.1-0.6); Absolute Neutrophils 4.5 10^3/uL (1.4-6.5); Mean Corp Hgb Conc. 35.2 g/dL (33.0-37.0); Mean Corpuscular Hgb 32.3 pg (27.0-31.0); Mean Corpuscular Volume 91.7 fL (81.0-99.0); Mean Platelet Volume 10.2 fL (7.4-10.4); Nucleated Red Blood Cells % 0 %; Platelet Count 180 10^3/uL (130-400); Red Blood Cell Count 2.17 10^6/uL (4.20-5.40); Red Cell Dist. Width 13.6 % (11.5-14.5); White Blood Cell Count 6.9 10^3/uL (4.8-10.8)
[2024-06-02 05:30] LABS: Blood Urea Nitrogen 4 mg/dl (7-17); Calcium 8.2 mg/dl (8.4-10.2); Carbon Dioxide 27 mmol/L (22-30); Chloride 106 mmol/L (98-107); Estimated Creatinine Clearance 67 ml/min; Glucose 106 mg/dl (70-99); Potassium 3.2 mmol/L (3.5-5.1); Sodium 138 mmol/L (135-145); eGFR > 60.00
--- NOTE | 2024-06-02 06:24 | PTCARENOTE ---
Addendum entered by Kayy Howe RN 06/02/24 06:29:
plavix also put back on hold per FLAT SORTER PROCESSOR.
Original Note:
hgb 7.0 this morning, no bleeding overnight. k 3.2. FLAT SORTER PROCESSOR aware. 1unit RBC ordered & PO K.
[2024-06-02] MEDS: KCL 40 MEQ PO (06:38)
[2024-06-02] MEDS: VITAMIN D3 (cholecalciferol) 25 MCG PO (08:43)
[2024-06-02] MEDS: PROTONIX IV 40 MG IV ×2 (08:43→19:01)
[2024-06-02] MEDS: NSS (PRESERVATIVE FREE) 10 ML IV ×2 (08:45→19:01)
[2024-06-02] MEDS: LR 1000 IV (08:46)
[2024-06-02] MEDS: LOW STRENGTH ASPIRIN PO (08:53)
[2024-06-02] MEDS: LOW STRENGTH ASPIRIN 81 MG PO (09:42)
--- NOTE | 2024-06-02 13:35 | W.PN.HOSP.TC ---
Today's Communication/Plan
-
restart diet and monitor
repeat h/h post transfusion
if no bleeding restart plavix
monitor closely
BP stable-avoid hypotension
IVF stopped.
Assessment / Plan
Assessment / Plan
General: Well Developed, Well Nourished and No Apparent Distress
HEENT: NormoCephalic, Moist mucous membranes and Atraumatic
Respiratory: Clear
Cardiac: S1/S2 and Regular Rhythm; No Murmur or Rub
GI: Soft, Non Tender, Non Distended and Normal Bowel Sounds; No Organomegaly
Rectal: Hem Positive (By ER)
Genito-urinary: Deferred by me
Musculoskeletal: No Clubbing, No Cyanosis and No Edema
Skin: No Rash
Neuro: Awake, Alert, Oriented, AO x 3, No Motor Deficits and Nonfocal/grossly intact
Psych: Calm
#Bright red blood per rectum likely secondary to lower GI bleed likely secondary to diverticular unclear if exacerbated by aspirin and or Plavix
# Acute blood loss anemia
CT angiogram with no active bleeding on admission . Rectal thickening noted
Continue aspirin.
Trend hemoglobin
PPI twice daily for now
Status post colonoscopy 05/31/2024 with copious amount of fresh red blood and blood clots found in the rectum, in the rectosigmoid colon in the sigmoid colon, and descending colon and splenic flexure and in the mid transverse colon. This was most
pronounced in the sigmoid colon with large fresh red blood clot suggestive of recent bleeding. Moderate diverticulosis. There was evidence of recent bleeding from diverticular opening within the left colon. Liquid yellowish stool/luid in the
proximal transverse colon, at the hepatic flexure, in the ascending colon and in the cecum. Further suggestive of a left-sided diverticular hemorrhage.
Status post colonoscopy patient underwent repeat CT angiogram on 05/31/24. CAT scan was positive for active bleeding noted in the sigmoid colon in the left pelvis
iRad was consulted overnight and patient underwent arteriogram however no active extravasation was noted. No embolization was performed.
s/p clears. Advanced to regular diet and monitor.
GI recommending repeat CT angiogram or iRad consultation if with any repeat episode of bleeding as patient may require embolization.
Repeat H&H and transfuse as needed aggressively.
If no episodes of bleeding can restart Plavix later tonight
GI following
#CAD status post stents 02/23
Continue with aspirin
Holding Plavix and need to be restarted PRADEEP
Plavix remains on hold as with significant amount of active sigmoid colonic bleeding with drop in hemoglobin and requiring blood transfusion. High risk remains with a recent stent however due to significant gastrointestinal lower bleed risk or kind
of great benefit. If if no repeat episode of hematochezia then restart Plavix and monitor
Monitor on telemetry
#Primary hypertension
holding losartan for now
#Arthritis
Pain control with Tylenol
Vitamin D deficiency
Continue with p.o. supplementation
#Hypokalemia
-replete and monitor
DVT prophylaxis SCDs in the setting of GI bleeding
Full code
Discussed with gastroenterology
Anticipated Discharge: > 48 hours
Subjective/Interval History
-
Date of Service: June 02, 2024
No BRPBR >24H
No abd pain
Objective Data
-
Labs:
Laboratory Results
06/02/24 06/02/24
04:41 13:00
WBC 6.9
Hgb 7.0 L Pending
Hct 21.0 L Pending
Plt Count 180
Sodium 138
Potassium 3.2 L
Chloride 106
Carbon Dioxide 27
BUN 4 L
Creatinine 0.6
Glucose 106 H
Calcium 8.2 L
Vital Signs:
Vital Signs
Temp Pulse Resp BP Pulse Ox
98.5 F 88 25 149/79 93
06/02/24 11:36 06/02/24 12:00 06/02/24 12:00 06/02/24 12:00 06/02/24 12:00
I&O
06/01/24 06/02/24 06/03/24
06:59 06:59 06:59
Intake Total 0 / 0 1960 / 1960 620 / 620
Output Total 1800 / 1800 1200 / 1200
Balance -1800 / -1800 760 / 760 620 / 620
Data Reviewed
-
Total Time Spent with Patient (in minutes): 55
[2024-06-02 15:52] LABS: Hematocrit 23.4 % (37.0-47.0); Hemoglobin 8.2 g/dL (12.0-16.0)
--- NOTE | 2024-06-02 16:36 | PTCARENOTE ---
Patient had no signs of bleeding today, received one unit of PRBCs. HGB is now 8.2. Patient is tolerating solid foods. Denying pain when asked.
--- NOTE | 2024-06-02 16:41 | CM ---
Patient with Dx BRBPR likely lower GIB s/p transfusion. Room air. Diet advanced.
No CM d/c needs identified.
Plan home.
[2024-06-03] VITALS (10 sets, daily range): BP systolic 127–149; BP diastolic 54–90
[2024-06-03 04:52] LABS: % Basophils 0.5 % (0-2); % Immature Granulocytes 0.5 % (0-0.5); % Lymphocytes 16.4 % (20.5-51.1); % Monocytes 11.6 % (1.7-9.3); Absolute Eosinophils 0.2 10^3/uL (0-0.7); Absolute Lymphocytes 1.3 10^3/uL (1.2-3.4); Absolute Monocytes 0.9 10^3/uL (0.1-0.6); Absolute Neutrophils 5.6 10^3/uL (1.4-6.5); Hematocrit 21.9 % (37.0-47.0); Hemoglobin 7.8 g/dL (12.0-16.0); Mean Corp Hgb Conc. 35.6 g/dL (33.0-37.0); Mean Corpuscular Hgb 32.2 pg (27.0-31.0); Mean Corpuscular Volume 90.5 fL (81.0-99.0); Mean Platelet Volume 10.3 fL (7.4-10.4); Nucleated Red Blood Cells % 0 %; Platelet Count 172 10^3/uL (130-400); Red Blood Cell Count 2.42 10^6/uL (4.20-5.40); Red Cell Dist. Width 14.5 % (11.5-14.5); White Blood Cell Count 8.1 10^3/uL (4.8-10.8)
[2024-06-03 05:14] LABS: Blood Urea Nitrogen 8 mg/dl (7-17); Carbon Dioxide 25 mmol/L (22-30); Chloride 105 mmol/L (98-107); Estimated Creatinine Clearance 67 ml/min; Glucose 111 mg/dl (70-99); Potassium 3.6 mmol/L (3.5-5.1); Sodium 138 mmol/L (135-145); eGFR > 60.00
--- NOTE | 2024-06-03 05:21 | PTCARENOTE ---
Pt without bleeding overnight. Resting comfortably throughout shift. VSS. Afebrile. SR on CM. Neurovascular checks as documented. No change from previous assessment. Turns self in bed. Call within reach. Will continue to monitor.
[2024-06-03] MEDS: NSS (PRESERVATIVE FREE) 10 ML IV ×2 (08:37→19:49)
[2024-06-03] MEDS: PROTONIX IV 40 MG IV ×2 (08:38→19:50)
[2024-06-03] MEDS: VITAMIN D3 (cholecalciferol) 25 MCG PO (08:38)
[2024-06-03] MEDS: LOW STRENGTH ASPIRIN 81 MG PO (08:38)
--- NOTE | 2024-06-03 11:15 | W.PN.HOSP.TC ---
Today's Communication/Plan
-
Monitor with Plavix
Trend hemoglobin
Monitor stools
Assessment / Plan
Assessment / Plan
General: Well Developed, Well Nourished and No Apparent Distress
HEENT: NormoCephalic, Moist mucous membranes and Atraumatic
Respiratory: Clear
Cardiac: S1/S2 and Regular Rhythm; No Murmur or Rub
GI: Soft, Non Tender, Non Distended and Normal Bowel Sounds; No Organomegaly
Rectal: Hem Positive (By ER)
Genito-urinary: Deferred by me
Musculoskeletal: No Clubbing, No Cyanosis and No Edema
Skin: No Rash
Neuro: Awake, Alert, Oriented, AO x 3, No Motor Deficits and Nonfocal/grossly intact
Psych: Calm
#Bright red blood per rectum likely secondary to lower GI bleed likely secondary to diverticular unclear if exacerbated by aspirin and or Plavix
# Acute blood loss anemia
CT angiogram with no active bleeding on admission . Rectal thickening noted
Continue aspirin.
Trend hemoglobin
PPI twice daily for now
Status post colonoscopy 05/31/2024 with copious amount of fresh red blood and blood clots found in the rectum, in the rectosigmoid colon in the sigmoid colon, and descending colon and splenic flexure and in the mid transverse colon. This was most
pronounced in the sigmoid colon with large fresh red blood clot suggestive of recent bleeding. Moderate diverticulosis. There was evidence of recent bleeding from diverticular opening within the left colon. Liquid yellowish stool/luid in the
proximal transverse colon, at the hepatic flexure, in the ascending colon and in the cecum. Further suggestive of a left-sided diverticular hemorrhage.
Status post colonoscopy patient underwent repeat CT angiogram on 05/31/24. CAT scan was positive for active bleeding noted in the sigmoid colon in the left pelvis
iRad was consulted overnight and patient underwent arteriogram however no active extravasation was noted. No embolization was performed.
s/p clears. Advanced to regular diet and monitor.
GI recommending repeat CT angiogram or iRad consultation if with any repeat episode of bleeding as patient may require embolization.
Repeat H&H and transfuse as needed aggressively.
Hemoglobin 7.8 noted. No episode of bleeding. Plavix restarted.
GI following
#CAD status post stents 02/23
Continue with aspirin and Plavix
Plavix was heold as with significant amount of active sigmoid colonic bleeding with drop in hemoglobin and requiring blood transfusion. High risk remains with a recent stent however due to significant gastrointestinal lower bleed risk or kind of
great benefit.
Monitor on telemetry
#Primary hypertension
holding losartan for now
#Arthritis
Pain control with Tylenol
Vitamin D deficiency
Continue with p.o. supplementation
#Hypokalemia
-replete and monitor
DVT prophylaxis SCDs in the setting of GI bleeding
Full code
Anticipated Discharge: 24 - 48 hours
Subjective/Interval History
-
Date of Service: June 03, 2024
Denies any further episodes of bright red blood per the rectum
Tolerating diet.
Objective Data
-
Labs:
Laboratory Results
06/03/24
04:20
WBC 8.1
Hgb 7.8 L
Hct 21.9 L
Plt Count 172
Sodium 138
Potassium 3.6
Chloride 105
Carbon Dioxide 25
BUN 8
Creatinine 0.5 L
Glucose 111 H
Calcium 8.0 L
Vital Signs:
Vital Signs
Temp Pulse Resp BP Pulse Ox
98.8 F 76 22 139/65 91
06/03/24 07:05 06/03/24 04:00 06/03/24 02:00 06/03/24 06:00 06/03/24 06:00
I&O
06/02/24 06/03/24 06/04/24
06:59 06:59 06:59
Intake Total 1960 / 1959 1620 / 1620
Output Total 1200 / 1200 600 / 600 700 / 700
Balance 760 / 760 1020 / 1020 -700 / -700
--- NOTE | 2024-06-03 16:50 | PTCARENOTE ---
Received pt. via wheelchair from IMU. VSS, NSR on tele, no c/o pain at this time. Pt. resting in bed with call easton in reach with daughter at bedside.
[2024-06-04 03:32] VITALS: BP 127/71
--- NOTE | 2024-06-04 06:20 | VATNOTE ---
NO BR FROM 4FR RUE ML. SITE IS TENDER PER PT AND APPEARS SWOLLEN AND LARGER THAN LUE
--- NOTE | 2024-06-04 06:22 | VATNOTE ---
JESSY AT LEVEL OF AXILLA NOW MEASURES 36 CM AND IS DOCUMENTED TO BE 33 CM AT TIME OF ML INSERTION. WILL REMOVE ML AND CONTINUE TO MONITOR . PCN MADE AWARE.
[2024-06-04 07:20] VITALS: BP 154/82
[2024-06-04 07:27] LABS: % Basophils 0.6 % (0-2); % Eosinophils 1.9 % (0-6); % Immature Granulocytes 0.5 % (0-0.5); % Lymphocytes 15.1 % (20.5-51.1); % Monocytes 12.2 % (1.7-9.3); % Neutrophils 69.7 % (42.2-75.2); Absolute Basophils 0.1 10^3/uL (0-0.2); Absolute Eosinophils 0.2 10^3/uL (0-0.7); Absolute Lymphocytes 1.2 10^3/uL (1.2-3.4); Absolute Monocytes 0.9 10^3/uL (0.1-0.6); Absolute Neutrophils 5.4 10^3/uL (1.4-6.5); Hematocrit 23.7 % (37.0-47.0); Hemoglobin 8.3 g/dL (12.0-16.0); Mean Corpuscular Hgb 31.7 pg (27.0-31.0); Mean Corpuscular Volume 90.5 fL (81.0-99.0); Mean Platelet Volume 10.4 fL (7.4-10.4); Nucleated Red Blood Cells % 0 %; Platelet Count 214 10^3/uL (130-400); Red Blood Cell Count 2.62 10^6/uL (4.20-5.40); Red Cell Dist. Width 14.2 % (11.5-14.5); White Blood Cell Count 7.7 10^3/uL (4.8-10.8)
[2024-06-04 08:07] LABS: Blood Urea Nitrogen 9 mg/dl (7-17); Calcium 8.4 mg/dl (8.4-10.2); Carbon Dioxide 27 mmol/L (22-30); Chloride 104 mmol/L (98-107); Estimated Creatinine Clearance 67 ml/min; Glucose 112 mg/dl (70-99); Potassium 3.6 mmol/L (3.5-5.1); Sodium 138 mmol/L (135-145); eGFR > 60.00
[2024-06-04] MEDS: LOW STRENGTH ASPIRIN 81 MG PO (08:46)
[2024-06-04] MEDS: NSS (PRESERVATIVE FREE) IV ×2 (08:46→12:07)
[2024-06-04] MEDS: PROTONIX IV IV ×2 (08:47→12:07)
[2024-06-04] MEDS: VITAMIN D3 (cholecalciferol) 25 MCG PO (08:47)
[2024-06-04] MEDS: PLAVIX 75 MG PO (08:47)
--- NOTE | 2024-06-04 11:18 | W.PN.HOSP.TC ---
Today's Communication/Plan
-
DC HOME
OP carrds/gi f/u
Assessment / Plan
Assessment / Plan
General: Well Developed, Well Nourished and No Apparent Distress
HEENT: NormoCephalic, Moist mucous membranes and Atraumatic
Respiratory: Clear
Cardiac: S1/S2 and Regular Rhythm; No Murmur or Rub
GI: Soft, Non Tender, Non Distended and Normal Bowel Sounds; No Organomegaly
Rectal: Hem Positive (By ER)
Genito-urinary: Deferred by me
Musculoskeletal: No Clubbing, No Cyanosis and No Edema
Skin: No Rash
Neuro: Awake, Alert, Oriented, AO x 3, No Motor Deficits and Nonfocal/grossly intact
Psych: Calm
#Bright red blood per rectum likely secondary to lower GI bleed likely secondary to diverticular unclear if exacerbated by aspirin and or Plavix
#Acute blood loss anemia
CT angiogram with no active bleeding on admission . Rectal thickening noted
Continue aspirin.
Trend hemoglobin
PPI twice daily for now
Status post colonoscopy 05/31/2024 with copious amount of fresh red blood and blood clots found in the rectum, in the rectosigmoid colon in the sigmoid colon, and descending colon and splenic flexure and in the mid transverse colon. This was most
pronounced in the sigmoid colon with large fresh red blood clot suggestive of recent bleeding. Moderate diverticulosis. There was evidence of recent bleeding from diverticular opening within the left colon. Liquid yellowish stool/luid in the
proximal transverse colon, at the hepatic flexure, in the ascending colon and in the cecum. Further suggestive of a left-sided diverticular hemorrhage.
Status post colonoscopy patient underwent repeat CT angiogram on 05/31/24. CAT scan was positive for active bleeding noted in the sigmoid colon in the left pelvis
[facility] was consulted overnight and patient underwent arteriogram however no active extravasation was noted. No embolization was performed.
s/p clears. Advanced to regular diet and monitor.
GI recommending repeat CT angiogram or [facility] consultation if with any repeat episode of bleeding as patient may require embolization.
Repeat H&H and transfuse as needed aggressively.
Hemoglobin 8.3 No episode of bleeding noted on plavix.
GI following
#CAD status post stents 02/23
Continue with aspirin and Plavix
Plavix was hold as with significant amount of active sigmoid colonic bleeding with drop in hemoglobin and requiring blood transfusion. High risk remains with a recent stent however due to significant gastrointestinal lower bleed risk or kind of
great benefit.
Monitor on telemetry
#Primary hypertension
restart losartan as BP uptrending 154/82
#Arthritis
Pain control with Tylenol
Vitamin D deficiency
Continue with p.o. supplementation
#Hypokalemia
-replete and monitor
DVT prophylaxis SCDs in the setting of GI bleeding
Full code
More than 30 minutes spent in discharge including
Final examination of the patient
Summarizing hospital stay
Instructions for continuing care to all relevant caregivers
Preparation of discharge records, prescriptions, and referral forms
Total time spent (in minutes): 53
Anticipated Discharge: Today
Subjective/Interval History
-
Date of Service: June 04, 2024
no BRBPR
no abd pain
no lightheadedness or dizziness
Objective Data
-
Labs:
Laboratory Results
06/04/24
07:01
WBC 7.7
Hgb 8.3 L
Hct 23.7 L
Plt Count 214 D
Sodium 138
Potassium 3.6
Chloride 104
Carbon Dioxide 27
BUN 9
Creatinine 0.5 L
Glucose 112 H
Calcium 8.4
Vital Signs:
Vital Signs
Temp Pulse Resp BP Pulse Ox
98.3 F 83 18 154/82 97
06/04/24 07:20 06/04/24 07:20 06/04/24 07:20 06/04/24 07:20 06/04/24 07:20
I&O
06/03/24 06/04/24 06/05/24
06:59 06:59 06:59
Intake Total 1620 / 1620 480 / 480
Output Total 600 / 600 700 / 700
Balance 1020 / 1020 -220 / -220
--- NOTE | 2024-06-04 11:38 | W.DCSUMMARY ---
Discharge Summary
Discharge Data
Date of Admission: 05/30/24
Date of Discharge: 06/04/24
-
Pending Results: No
Hospital Course
84-year-old female past medical history of CAD status post stents, hypertension, arthritis, was presenting from home with bright red blood per the rectum. Patient initial CAT scan on admission was negative for active bleeding. Gastroenterology was
consulted. Patient was started on PPI drip initially. Patient underwent evaluation by asset accountant. Status post colonoscopy 05/31/2024 with copious amount of fresh red blood and blood clots found in the rectum, in the rectosigmoid colon in
the sigmoid colon, and descending colon and splenic flexure and in the mid transverse colon. This was most pronounced in the sigmoid colon with large fresh red blood clot suggestive of recent bleeding. Moderate diverticulosis. There was evidence
of recent bleeding from diverticular opening within the left colon. Liquid yellowish stool/luid in the proximal transverse colon, at the hepatic flexure, in the ascending colon and in the cecum. Further suggestive of a left-sided diverticular
hemorrhage. Status post colonoscopy patient underwent repeat CT angiogram on 05/31/24. CAT scan was positive for active bleeding noted in the sigmoid colon in the left pelvis [facility] was consulted overnight and patient underwent arteriogram however no
active extravasation was noted. No embolization was performed. Patient did not have any further episodes of bleeding. Aspirin was continued. Plavix was restarted. Patient without any significant amount of bleeding. Patient received total of 2
units of PRBC. Patient hemoglobin stabilized. Patient was not have any active bleeding while on aspirin and Plavix. Patient blood pressure was slowly uptrending and okay to be restarted on losartan. Patient was restarted on diet. Patient was
recommended to return to ER if she develops any episodes of hematochezia/bright red blood per the rectum. Patient verbalized understanding. Patient was eval by physical Occupational Therapy. Patient be discharged home.
Discharge Plan
-
Patient Disposition: Home (Routine Discharge)
Discharge Diagnosis/Procedures: Hematochezia likely secondary to diverticular bleeding status post colonoscopy
Acute blood loss anemia status post blood transfusion
Condition: Fair
Diet: Low Cholesterol
Activity: With assistance
Driving Restrictions: As prior to admission
Blood Work: cbc in 5-7 days via primary doctor.
Referrals:
Yolanda Rocha MD [Family Provider] - in less than 1 week
Prescriptions:
New
pantoprazole [Protonix] 40 mg tablet,delayed release (DR/EC)
40 mg PO DAILY Qty: 30 0RF
Continued
vitamin B complex 1 TAB tablet
1 tab PO DAILY
cholecalciferol (vitamin D3) [Vitamin D3] 1,000 UNIT capsule
1,000 unit PO DAILY
vitamin E (dl, acetate) 400 UNITS capsule
400 units PO DAILY
Calcium Magnesium Zinc
1 tab PO DAILY
clopidogrel 75 mg tablet
75 mg PO DAILY
aspirin 81 mg Tablet,Chewable
81 mg PO DAILY
losartan 100 mg tablet
100 mg PO DAILY
Discontinued
meloxicam 15 mg Tablet
15 mg PO DAILYPRN PRN (Reason: hip pain)
Discharge Orders:
Discharge Patient (As Directed); Ordered 06/04/24
Ordered By: Alexi Barrow
Discharge Date and Time
Print Language: CROATIAN
[2024-06-04 11:45] VITALS: BP 143/81
[2024-06-04 15:40] VITALS: BP 157/78
--- NOTE | 2024-06-04 17:10 | PTCARENOTE ---
IV discontinued. Discharge paperwork printed and reviewed with patient and family member who verbalized understanding. Pt transported off the floor via wheelchair with all belongings from the room.
--- NOTE | 2024-06-05 08:50 | PTCARENOTE ---
Addendum entered by Jazz Mtz RN 06/05/24 10:11:
The volume of blood infused for this unit was 250 mL according to the Blood Product Unit # [id number] administration documentation. The volume could not be documented in the electronic TAR for the date and time of the unit completion due to
electronic timing restrictions. The volume was instead documented under today's date.
Original Note:
Blood Product Unit # [id number] administration documentation was completed on the Unit Issue/Transfusion Form. Documentation of End Date/Time and vital signs were transcribed onto the patient's TAR by this RN for the purpose of completing the
electronic TAR record. Refer to the scanned Unit Issue/Transfusion Form for all documentation regarding this unit.
== END 2024-06-04 17:02 | disposition home or self-care (01) | DRG 378 ==
LOC: 4 EAST ACU 11:42
PROVIDERS: Emergency Medicine; Nurse Practitioner Family; Radiology Vascular & Interventional Radiology; ADMITTING PHYSICIAN Hospitalist; CONSULT PHYSICIAN Student in an Organized Health Care Education/Training Program; EMERGENCY PHYSICIAN Emergency Medicine; FAMILY PHYSICIAN Family Medicine
PROC: 30233N1 Transfusion of Nonautologous Red Blood Cells into Peripheral Vein, Percutaneous Approach (ICD-10-PCS; 2024-05-31)
PROC: 0DJD8ZZ Inspection of Lower Intestinal Tract, Via Natural or Artificial Opening Endoscopic (ICD-10-PCS; 2024-05-31)
PROC: B41J1ZZ Fluoroscopy of Other Lower Arteries using Low Osmolar Contrast (ICD-10-PCS; 2024-06-01)
DX: K57.31 Diverticulosis of large intestine without perforation or abscess with bleeding (principal); D62 Acute posthemorrhagic anemia; D68.32 Hemorrhagic disorder due to extrinsic circulating anticoagulants; I10 Essential (primary) hypertension; M19.90 Unspecified osteoarthritis, unspecified site; E55.9 Vitamin D deficiency, unspecified; K64.4 Residual hemorrhoidal skin tags; Z95.5 Presence of coronary angioplasty implant and graft; E87.6 Hypokalemia; C43.9 Malignant melanoma of skin, unspecified
CPT/HCPCS: 36245; 74174; 75726; 76942; 80048; 80053; 85014; 85018; 85025; 85610; 86850; 86900; 86901; 86920; 93005; 97161; 99152; 99285; C1769; C1887; P9016; Q9967